=== PATIENT | female | born 1975 | race Two or more races ===

== ENCOUNTER 2022-03-29 18:26 | Emergency (ER) | payer MEDICAID ==
[~2022-03-29] VITALS: Ht 165.1 cm; Wt 90.0 kg
[~2022-03-29 18:26] MED LIST: PREN-129 OR
[2022-03-29] MEDS ORDERED: IBUP800T27 PO (20:34)
[2022-03-29] MEDS ORDERED: KETOROLAC TROMETH 60MG/2ML VIAL IM ONE (20:45)
[2022-03-29 21:18] VITALS: BP 121/78
== END 2022-03-29 21:18 | disposition home or self-care (01) ==
LOC: ER 18:26
DX: M25.552 Pain in left hip (principal); M25.551 Pain in right hip; M54.42 Lumbago with sciatica, left side; M54.41 Lumbago with sciatica, right side
CPT/HCPCS: 73564; 96372; 99283; J1885